=== PATIENT | female | born 1965 | race Caucasian/White ===

== ENCOUNTER 2025-06-16 09:24 | Inpatient (IN) | payer MEDICARE ==
[~2025-06-16] VITALS: Ht 167.6 cm; Wt 140.6 kg
[2025-06-16 09:45] VITALS: TEMP 98.1
[2025-06-16 10:01] LABS: BASOPHILS % 0.5 % (0.0-1.0); EOSINOPHILS % 4.5 % (0.0-6.0); LYMPHOCYTES % 17.5 % (18.0-39.1); MONOCYTES % 7.1 % (4.4-11.3); NEUTROPHILS % 69.7 % (38.7-80.0); RED CELL DISTRIBUTION WIDTH 19.3 % (11.7-14.4)
[2025-06-16] MEDS ORDERED: FOLIC PO (10:13)
[2025-06-16] MEDS ORDERED: CYCLOBENZAPRINE5 MG PO (10:13)
[2025-06-16] MEDS ORDERED: PREDNISONE5 MG PO (10:13)
[2025-06-16] MEDS ORDERED: SPIRONOLACTONE50 MG PO (10:13)
[2025-06-16] MEDS ORDERED: LEFLUNOMIDE20 MG PO (10:13)
[2025-06-16] MEDS ORDERED: HYDROXYCHLOROQ200 MG PO (10:13)
[2025-06-16] MEDS ORDERED: FUROSEMIDE20 MG PO (10:13)
[2025-06-16] MEDS ORDERED: METOPROLOL SUCC50 MG PO (10:13)
[2025-06-16] MEDS ORDERED: AIRSUPRA 90-810.7 GM INH (10:13)
[2025-06-16] MEDS ORDERED: OMEPRAZOLE40 MG PO (10:13)
[2025-06-16 10:30] LABS: EST GLOMERULAR FILTRATION RATE 16.0 ML/MIN (>=60)
[2025-06-16 11:53] LABS: INR 1.6
[2025-06-16] MEDS: SODIUM CHLORIDE 0.9% 1000ML 1,000 ML IV SCH (13:12)
[2025-06-16 14:57] VITALS: PULSE 74; RESP 15; O2SAT 100
[2025-06-16 16:30] VITALS: PULSE 69; RESP 16
[2025-06-16 18:10] VITALS: BP 100/59; PULSE 67; RESP 18; TEMP 97.3; O2SAT 100
[2025-06-16 20:00] VITALS: BP 94/36; PULSE 72; RESP 17; TEMP 97.7; O2SAT 98
[2025-06-16 22:15] VITALS: BP_SYST 140; BP_SYST 96; BP_DIAS 57; BP_DIAS 77; PULSE 68; PULSE 80; RESP 17; TEMP 98; TEMP 98.2; O2SAT 98; O2SAT 99
[2025-06-17] VITALS (12 sets, daily range): BP systolic 81–155; BP diastolic 52–91; PULSE 68–86; RESP 16–20; TEMP 97.3–98.2; O2SAT 95–100
[2025-06-17 01:36] LABS: % IRON SATURATION 92 % (15-50)
[2025-06-17 08:05] LABS: BASOPHILS % 0.8 % (0.0-1.0); EOSINOPHILS % 5.9 % (0.0-6.0); LYMPHOCYTES % 19.1 % (18.0-39.1); MONOCYTES % 7.5 % (4.4-11.3); NEUTROPHILS % 66.2 % (38.7-80.0); RED CELL DISTRIBUTION WIDTH 19.2 % (11.7-14.4)
[2025-06-17 08:38] LABS: EST GLOMERULAR FILTRATION RATE 15.0 ML/MIN (>=60)
[2025-06-17] MEDS: ALBUMIN 5% 0.05 GM/ML BTL IV ONE (12:14)
[2025-06-17] MEDS: BUMETANIDE INJ 0.25MG/ML 4ML VIAL IV SCH (13:50)
[2025-06-17 19:02] LABS: LEUKOCYTE ESTERASE ,URINE NEGATIVE (NEGATIVE); PROTEIN,URINE DIPSTICK TRACE (NEGATIVE); URINE UROBILINOGEN 1 mg/dL (0.2 - 1)
[2025-06-17 19:16] LABS: EPITHELIAL CELLS,URINE FEW /LPF
[2025-06-17 19:19] LABS: CREATININE,URINE RANDOM 133.30 mg/dL (47-110)
[2025-06-18] MEDS: RIFAXIMIN 550 MG TABLET ONE (07:24)
[2025-06-18 07:52] VITALS: BP 101/88; PULSE 85; RESP 20; TEMP 97.7; O2SAT 98
[2025-06-18 08:54] LABS: EST GLOMERULAR FILTRATION RATE 16.0 ML/MIN (>=60)
[2025-06-18] MEDS: RIFAXIMIN 550 MG TABLET PO SCH (09:04)
[2025-06-18] MEDS: ALBUMIN 5% 0.05 GM/ML BTL IV ONE (11:02)
[2025-06-18] MEDS: ALBUMIN 25% 25GM 100ML 0.25 GM/ML BTL IV SCH (13:01)
[2025-06-18 16:15] VITALS: BP 144/71; PULSE 97; RESP 18; TEMP 98.9; O2SAT 100
[2025-06-18] MEDS: BUMETANIDE INJ 0.25MG/ML 4ML VIAL IV ONE ×2 (17:39→17:40)
[2025-06-18] MEDS: LACTULOSE SYRUP 20 GM/30 ML UDC PO PRN (17:39)
[2025-06-18] MEDS: BUMETANIDE INJ 0.25MG/ML 4ML VIAL IV SCH (18:58)
[2025-06-18] MEDS: ONDANSETRON HCL INJ 2MG/ML 2ML 2 MG/ML VIAL IV PRN (19:00)
[2025-06-18] MEDS: Morphine 4mg INJECTION 4 MG/ML INJ IV PRN (19:00)
[2025-06-18 20:00] VITALS: BP 129/77; PULSE 96; RESP 17; TEMP 98.6; O2SAT 100
[2025-06-18 21:21] VITALS: BP 129/77; PULSE 96; RESP 17; TEMP 98.6; O2SAT 100
[2025-06-19] VITALS (10 sets, daily range): BP systolic 101–137; BP diastolic 52–79; PULSE 83–96; RESP 12–20; TEMP 97.6–98.8; O2SAT 96–100
[2025-06-19] MEDS: LACTULOSE SYRUP 20 GM/30 ML UDC PO SCH (05:27)
[2025-06-19 07:05] LABS: BASOPHILS % 0.5 % (0.0-1.0); EOSINOPHILS % 8.1 % (0.0-6.0); LYMPHOCYTES % 20.2 % (18.0-39.1); MONOCYTES % 13.2 % (4.4-11.3); NEUTROPHILS % 57.6 % (38.7-80.0); RED CELL DISTRIBUTION WIDTH 19.0 % (11.7-14.4)
[2025-06-19 07:30] LABS: EST GLOMERULAR FILTRATION RATE 17.0 ML/MIN (>=60)
[2025-06-19] MEDS: PHYTONADIONE 10 MG/ML AMP SQ ONE (17:33)
[2025-06-19] MEDS: ALBUTEROL/IPRATROPIUM 3 ML NEB NEB SCH (19:53)
[2025-06-19] MEDS: GUAIFENESIN 600MG/DEXTROMETHORPHAN 30MG TABSR PO SCH (20:23)
[2025-06-19] MEDS ORDERED: CEFTRIAXONE 1 GM VIAL IV SCH (21:00)
[2025-06-19] MEDS: ALBUMIN 25% 25GM 100ML 0.25 GM/ML BTL IV SCH (22:48)
[2025-06-20] VITALS (13 sets, daily range): BP systolic 103–148; BP diastolic 51–76; PULSE 92–118; RESP 11–20; TEMP 97.9–99.6; O2SAT 98–100
[2025-06-20] MEDS: BUMETANIDE INJ 0.25MG/ML 4ML VIAL IV SCH (00:32)
[2025-06-20] MEDS: METOCLOPRAMIDE HCL 10 MG/2ML VIAL IV SCH (00:38)
[2025-06-20] MEDS: FUROSEMIDE INJ 10 MG/ML 4 ML VIAL IV ONE (01:46)
[2025-06-20] MEDS: FUROSEMIDE INJ 10 MG/ML 4 ML VIAL ONE (04:02)
[2025-06-20 05:24] LABS: BASOPHILS % 0.3 % (0.0-1.0); EOSINOPHILS % 0.6 % (0.0-6.0); LYMPHOCYTES % 5.4 % (18.0-39.1); MONOCYTES % 9.1 % (4.4-11.3); NEUTROPHILS % 84.0 % (38.7-80.0); RED CELL DISTRIBUTION WIDTH 18.6 % (11.7-14.4)
[2025-06-20 05:57] LABS: EST GLOMERULAR FILTRATION RATE 19.0 ML/MIN (>=60)
[2025-06-20 09:28] LABS: ABG BASE EXCESS -5.0 mmol/L (-2 - 3); ABG HCO3 20 mmol/L (22-26); ABG OXYGEN SATURATION 99.0 % (95-98); ABG PCO2 32 mmHg (35-45); ABG PH 7.40 (7.35-7.45); ABG PO2 162 mmHg (80-105); ABG TCO2 21
[2025-06-20 10:33] LABS: EOSINOPHILS % (MANUAL) 1 % (0-7); LYMPHOCYTES % (MANUAL) 4 % (19-48); MONOCYTES % (MANUAL) 4 % (3.4-9.0); NEUTROPHILS % (MANUAL) 91 % (40-74); PLATELET ESTIMATE SLIGHTLY DECREASED; PLATELET MORPHOLOGY COMMENT NORMAL
[2025-06-20 10:34] LABS: RBC MORPHOLOGY COMMENT ABNORMAL
[2025-06-20] MEDS: SODIUM CHLORIDE 1 GM TAB PO SCH (12:00)
[2025-06-20] MEDS: SODIUM BICARBONATE 8.4% VIAL 150 ML in DEXTROSE 5% 1,000 ML IV SCH (13:05)
[2025-06-20] MEDS ORDERED: BUMETANIDE INJ 0.25MG/ML 4ML VIAL IV SCH (14:00)
[2025-06-20] MEDS: ACETAMINOPHEN 325 MG TAB PO PRN (14:36)
[2025-06-20] MEDS: MUPIROCIN 2% OINT 22 GM TUBE TOP SCH (14:37)
[2025-06-20 23:28] LABS: CORONAVIRUS COVID-19 AG NEGATIVE (NEGATIVE)
[2025-06-21] VITALS (31 sets, daily range): BP systolic 101–135; BP diastolic 57–109; PULSE 108–187; RESP 11–20; TEMP 97.6–98.8; O2SAT 95–100
[2025-06-21 08:52] LABS: BASOPHILS % 0.4 % (0.0-1.0); EOSINOPHILS % 4.1 % (0.0-6.0); LYMPHOCYTES % 10.9 % (18.0-39.1); MONOCYTES % 11.1 % (4.4-11.3); NEUTROPHILS % 73.1 % (38.7-80.0); RED CELL DISTRIBUTION WIDTH 18.7 % (11.7-14.4)
[2025-06-21 08:56] LABS: EST GLOMERULAR FILTRATION RATE 21.0 ML/MIN (>=60)
[2025-06-21] MEDS ORDERED: SODIUM CHLORIDE 0.9% 250ML 250 ML ONE (12:12)
[2025-06-21] MEDS: LEVALBUTEROL HCL SOLN NEBU 0.63 MG/3 ML NEB INH SCH (14:27)
[2025-06-21] MEDS: SODIUM CHLORIDE 0.9% 250ML 250 ML ONE (18:33)
[2025-06-21] MEDS ORDERED: AMIODARONE 900MG 900 MG in Premix Bag 1 BAG IV SCH (20:00)
[2025-06-21] MEDS: DILTIAZEM HCL 125 ML IV SCH (20:20)
[2025-06-21] MEDS: DILTIAZEM HCL 5 MG/ML 5 ML VIAL IV STA (20:21)
[2025-06-21] MEDS: DILTIAZEM HCL IV 5MG/ML 25 ML VIAL ONE (20:21)
[2025-06-21] MEDS: DILTIAZEM HCL VIAL 5 ML ONE (20:45)
[2025-06-21] MEDS: SODIUM CHLORIDE 0.9% 100 ML ONE (20:46)
[2025-06-21] MEDS: AMIODARONE HCL 150 MG/100 ML BAG IV ONE (20:47)
[2025-06-21] MEDS: AMIODARONE HCL 100 ML IV ONE (20:47)
[2025-06-22] VITALS (69 sets, daily range): BP systolic 106–150; BP diastolic 55–113; PULSE 77–117; RESP 11–21; TEMP 97–98.6; O2SAT 95–100
[2025-06-22] MEDS: DILTIAZEM HCL IV 5MG/ML 25 ML VIAL ONE (02:58)
[2025-06-22] MEDS: SODIUM CHLORIDE 0.9% 100 ML ONE (02:58)
[2025-06-22 06:58] LABS: BASOPHILS % 0.4 % (0.0-1.0); EOSINOPHILS % 4.7 % (0.0-6.0); LYMPHOCYTES % 8.1 % (18.0-39.1); MONOCYTES % 11.6 % (4.4-11.3); NEUTROPHILS % 74.6 % (38.7-80.0); RED CELL DISTRIBUTION WIDTH 18.8 % (11.7-14.4)
[2025-06-22 07:08] LABS: EST GLOMERULAR FILTRATION RATE 22.0 ML/MIN (>=60)
[2025-06-22 08:10] LABS: ABG HCO3 27 mmol/L (22-26); ABG PCO2 38 mmHg (35-45); ABG PH 7.45 (7.35-7.45); ABG PO2 69 mmHg (80-105); ABG TCO2 28
[2025-06-22 08:11] LABS: ABG BASE EXCESS 2.0 mmol/L (-2 - 3); ABG OXYGEN SATURATION 94.0 % (95-98)
[2025-06-22] MEDS: POTASSIUM CHLORIDE 20 MEQ TAB CR PO STA (10:30)
[2025-06-22] MEDS ORDERED: DILTIAZEM HCL IV SCH (10:45)
[2025-06-22] MEDS ORDERED: SODIUM CHLORIDE 0.9% IV SCH (10:45)
[2025-06-22] MEDS: DILTIAZEM HCL IV SOLN 125 MG in SODIUM CHLORIDE 0.9% 100 ML IV SCH (10:53)
[2025-06-22] MEDS: METOPROLOL TARTRATE 25 MG TAB PO ONE (12:24)
[2025-06-22] MEDS: METOPROLOL TARTRATE 25 MG TAB PO SCH (20:56)
[2025-06-23] VITALS (30 sets, daily range): BP systolic 116–142; BP diastolic 68–109; PULSE 92–113; RESP 10–25; TEMP 97.6–98.6; O2SAT 98–100
[2025-06-23 05:20] LABS: BASOPHILS % 0.4 % (0.0-1.0); EOSINOPHILS % 4.6 % (0.0-6.0); LYMPHOCYTES % 9.6 % (18.0-39.1); MONOCYTES % 12.4 % (4.4-11.3); NEUTROPHILS % 72.3 % (38.7-80.0); RED CELL DISTRIBUTION WIDTH 18.7 % (11.7-14.4)
[2025-06-23 05:37] LABS: EST GLOMERULAR FILTRATION RATE 22.0 ML/MIN (>=60)
[2025-06-23] MEDS ORDERED: ALBUMIN 25% 12.5GM 0.25 GM/ML BTL IV SCH (09:00)
[2025-06-23 09:54] LABS: ABG BASE EXCESS 7.0 mmol/L (-2 - 3); ABG HCO3 31 mmol/L (22-26); ABG OXYGEN SATURATION 98.0 % (95-98); ABG PCO2 41 mmHg (35-45); ABG PH 7.49 (7.35-7.45); ABG PO2 97 mmHg (80-105); ABG TCO2 32
[2025-06-23] MEDS: ALBUMIN 25% 12.5GM 50ML 50 ML IV SCH (11:02)
[2025-06-23] MEDS: BUMETANIDE 10 MG in SODIUM CHLORIDE 0.9% 60 ML IV SCH (11:04)
[2025-06-23] MEDS: OCTREOTIDE ACETATE 500 MCG/ML VIAL SQ SCH (13:02)
[2025-06-23] MEDS ORDERED: BUMETANIDE INJ 0.25MG/ML 4ML VIAL IV SCH (14:00)
[2025-06-24] VITALS (61 sets, daily range): BP systolic 114–155; BP diastolic 72–109; PULSE 69–101; RESP 9–21; TEMP 97.3–98.6; O2SAT 97–100
[2025-06-24 05:42] LABS: ANTI-MITOCHONDRIAL AB SCREEN <20.0 Units (0.0-20.0); SMOOTH MUSCLE ANTIBODY(ACTIN) 13 Units (0-19)
[2025-06-24 06:50] LABS: BASOPHILS % 0.4 % (0.0-1.0); EOSINOPHILS % 8.3 % (0.0-6.0); LYMPHOCYTES % 10.1 % (18.0-39.1); MONOCYTES % 13.1 % (4.4-11.3); NEUTROPHILS % 67.1 % (38.7-80.0); RED CELL DISTRIBUTION WIDTH 19.0 % (11.7-14.4)
[2025-06-24 07:19] LABS: EST GLOMERULAR FILTRATION RATE 24.0 ML/MIN (>=60)
[2025-06-24] MEDS: RIFAXIMIN 550 MG TABLET PO SCH (08:59)
[2025-06-24 09:50] LABS: HEPATITIS A ANTIBODY IGM (P) Negative; HEPATITIS B CORE IGM (P) Negative; HEPATITIS B SURFACE AG (P) Negative
[2025-06-24] MEDS: SODIUM CHLORIDE 0.9% 250ML 250 ML IV ONE (13:36)
[2025-06-24] MEDS ORDERED: SODIUM CHLORIDE 1 GM TAB PO SCH (16:00)
[2025-06-25] VITALS (39 sets, daily range): BP systolic 107–146; BP diastolic 70–126; PULSE 82–98; RESP 10–22; TEMP 97.9–98.4; O2SAT 94–100
[2025-06-25 06:25] LABS: ABG BASE EXCESS -5.0 mmol/L (-2 - 3); ABG HCO3 20 mmol/L (22-26); ABG OXYGEN SATURATION 78.0 % (95-98); ABG PCO2 34 mmHg (35-45); ABG PH 7.38 (7.35-7.45); ABG PO2 43 mmHg (80-105); ABG TCO2 21
[2025-06-25 06:25] LABS: ABG BASE EXCESS 7.0 mmol/L (-2 - 3); ABG HCO3 31 mmol/L (22-26); ABG OXYGEN SATURATION 98.0 % (95-98); ABG PCO2 41 mmHg (35-45); ABG PH 7.49 (7.35-7.45); ABG PO2 97 mmHg (80-105); ABG TCO2 32
[2025-06-25 06:25] LABS: ABG BASE EXCESS -5.0 mmol/L (-2 - 3); ABG HCO3 20 mmol/L (22-26); ABG OXYGEN SATURATION 99.0 % (95-98); ABG PCO2 32 mmHg (35-45); ABG PH 7.40 (7.35-7.45); ABG PO2 162 mmHg (80-105); ABG TCO2 21
[2025-06-25 06:25] LABS: ABG BASE EXCESS 2.0 mmol/L (-2 - 3); ABG HCO3 27 mmol/L (22-26); ABG OXYGEN SATURATION 94.0 % (95-98); ABG PCO2 38 mmHg (35-45); ABG PH 7.45 (7.35-7.45); ABG PO2 69 mmHg (80-105); ABG TCO2 28
[2025-06-25 06:58] LABS: BASOPHILS % 0.7 % (0.0-1.0); EOSINOPHILS % 9.9 % (0.0-6.0); LYMPHOCYTES % 10.4 % (18.0-39.1); MONOCYTES % 12.8 % (4.4-11.3); NEUTROPHILS % 64.0 % (38.7-80.0); RED CELL DISTRIBUTION WIDTH 19.5 % (11.7-14.4); RETICULOCYTE % 4.4 % (0.8-2.2)
[2025-06-25 07:33] LABS: EST GLOMERULAR FILTRATION RATE 27.0 ML/MIN (>=60); PHOSPHORUS 3.2 MG/DL (2.3-4.7)
[2025-06-26] VITALS (42 sets, daily range): BP systolic 81–155; BP diastolic 71–110; PULSE 78–97; RESP 11–23; TEMP 97.8–99.1; O2SAT 97–100
[2025-06-26 06:36] LABS: BASOPHILS % 0.6 % (0.0-1.0); EOSINOPHILS % 9.6 % (0.0-6.0); LYMPHOCYTES % 11.1 % (18.0-39.1); MONOCYTES % 12.6 % (4.4-11.3); NEUTROPHILS % 62.6 % (38.7-80.0); RED CELL DISTRIBUTION WIDTH 19.3 % (11.7-14.4)
[2025-06-26 07:04] LABS: EST GLOMERULAR FILTRATION RATE 29.0 ML/MIN (>=60)
[2025-06-26] MEDS: SODIUM CHLORIDE 1 GM TAB PO SCH (09:00)
[2025-06-26 17:11] LABS: MYELOPEROXIDASE AB (MPO) <0.2 units (0.0-0.9)
[2025-06-26 22:16] LABS: PROTEINASE-3 ANTIBODY <0.2 units (0.0-0.9)
[2025-06-27] VITALS (17 sets, daily range): BP systolic 121–156; BP diastolic 76–119; PULSE 88–95; RESP 0–25; TEMP 96.9–98.5; O2SAT 96–100
[2025-06-27 06:59] LABS: BASOPHILS % 0.7 % (0.0-1.0); EOSINOPHILS % 9.1 % (0.0-6.0); LYMPHOCYTES % 11.7 % (18.0-39.1); MONOCYTES % 10.1 % (4.4-11.3); NEUTROPHILS % 66.6 % (38.7-80.0); RED CELL DISTRIBUTION WIDTH 19.0 % (11.7-14.4)
[2025-06-27 07:34] LABS: EST GLOMERULAR FILTRATION RATE 31.0 ML/MIN (>=60)
[2025-06-27] MEDS: SODIUM CHLORIDE 1 GM TAB PO SCH ×2 (09:48→17:26)
[2025-06-27] MEDS ORDERED: BUMETANIDE 10 MG in SODIUM CHLORIDE 0.9% 60 ML IV SCH ×2 (10:30→12:30)
[2025-06-27] MEDS: BUMETANIDE 10 MG in SODIUM CHLORIDE 0.9% 60 ML IV SCH (12:57)
[2025-06-27] MEDS ORDERED: BUMETANIDE INJ 0.25MG/ML 4ML VIAL IV SCH (14:00)
[2025-06-27] MEDS: LACTULOSE SYRUP 20 GM/30 ML UDC PO SCH (16:54)
[2025-06-28] VITALS (10 sets, daily range): BP systolic 104–132; BP diastolic 77–98; PULSE 79–90; RESP 10–18; TEMP 97.9–98.2; O2SAT 98–100
[2025-06-28 06:50] LABS: BASOPHILS % 0.7 % (0.0-1.0); EOSINOPHILS % 5.9 % (0.0-6.0); LYMPHOCYTES % 10.4 % (18.0-39.1); MONOCYTES % 8.7 % (4.4-11.3); NEUTROPHILS % 72.9 % (38.7-80.0); RED CELL DISTRIBUTION WIDTH 19.3 % (11.7-14.4)
[2025-06-28 07:19] LABS: EST GLOMERULAR FILTRATION RATE 27.0 ML/MIN (>=60)
[2025-06-28] MEDS ORDERED: BUMETANIDE INJ 0.25 MG/ML 10 ML VIAL ONE (09:23)
[2025-06-28] MEDS ORDERED: BUMETANIDE 1 MG TAB PO SCH (17:00)
[2025-07-01 06:46] LABS: SPE ALPHA 1 GLOBULIN 0.1
[2025-07-01 06:47] LABS: SPE ALPHA 2 GLOBULIN 0.4; SPE GAMMA GLOBULIN 1.4
[2025-07-01 06:48] LABS: GLOBULIN TOTAL 2.6; KAPPA LIGHT CHAINS 118.1; SPE TOTAL PROTEIN 5.5
[2025-07-01 06:49] LABS: A/G RATIO 1.1; KAPPA/LAMBDA RATIO 1.00; LAMBDA LIGHT CHAINS 117.7
== END 2025-06-28 19:25 | disposition hospice, home (50) | DRG 432 ==
LOC: ER 09:30 → ERHOLD 11:51 → MED/SURG3 19:28 → IMCU 06-20 02:32 → ICU 06-20 15:53
PROVIDERS: ADMIT Internal Medicine; ATTEND Internal Medicine
PROC: 0T9B70Z Drainage of Bladder with Drainage Device, Via Natural or Artificial Opening (ICD-10-PCS; 2025-06-17)
PROC: 4A133R1 Monitoring of Arterial Saturation, Peripheral, Percutaneous Approach (ICD-10-PCS; principal; 2025-06-20)
PROC: 02HV33Z Insertion of Infusion Device into Superior Vena Cava, Percutaneous Approach (ICD-10-PCS; 2025-06-20)
PROC: 5A09357 Assistance with Respiratory Ventilation, Less than 24 Consecutive Hours, Continuous Positive Airway Pressure (ICD-10-PCS; 2025-06-20)
PROC: 30233N1 Transfusion of Nonautologous Red Blood Cells into Peripheral Vein, Percutaneous Approach (ICD-10-PCS; 2025-06-24)
DX: K74.60 Unspecified cirrhosis of liver (principal); I50.33 Acute on chronic diastolic (congestive) heart failure; J18.9 Pneumonia, unspecified organism; K76.7 Hepatorenal syndrome; N17.0 Acute kidney failure with tubular necrosis; E44.0 Moderate protein-calorie malnutrition; J81.1 Chronic pulmonary edema; E87.1 Hypo-osmolality and hyponatremia; I47.10 Supraventricular tachycardia, unspecified; K76.6 Portal hypertension; E66.01 Morbid (severe) obesity due to excess calories; Z68.43 Body mass index [BMI] 50.0-59.9, adult; K76.82 Hepatic encephalopathy; R62.7 Adult failure to thrive; K72.10 Chronic hepatic failure without coma; Z66 Do not resuscitate; Z11.52 Encounter for screening for COVID-19; N18.30 Chronic kidney disease, stage 3 unspecified; R53.81 Other malaise; R60.1 Generalized edema; K80.20 Calculus of gallbladder without cholecystitis without obstruction; M32.9 Systemic lupus erythematosus, unspecified; K21.9 Gastro-esophageal reflux disease without esophagitis; D64.9 Anemia, unspecified; G47.33 Obstructive sleep apnea (adult) (pediatric); Z79.52 Long term (current) use of systemic steroids
CPT/HCPCS: 36415; 36569; 36600; 71045; 71250; 74176; 76705; 76770; 80048; 80053; 81001; 81161; 81220; 82140; 82248; 82533; 82550; 82570; 82607; 82728; 82746; 82805; 82948; 83010; 83540; 83615; 83690; 83735; 83880; 84100; 84155; 84165; 84300; 84443; 84466; 84484; 84550; 85025; 85045; 85610; 85730; 86021; 86039; 86255; 86850; 86900; 86920; 93005; 93306; 94660; 94799; 96361; 99252; 99284; J0696; J1938; J2270; J2353; J2405; J2470; J2765; J3430; J7030; J7050; J7070; P9016; P9047